=== PATIENT | female | born 1950 | race African-American/Black ===

== ENCOUNTER 2023-01-28 12:07 | Emergency (ER) | payer OTHER ==
[2023-01-28 12:26] VITALS: RESP 18; BMI 22.4
[2023-01-28 14:59] LABS: EOS % 3.4 % (0-4.5); HEMOGLOBIN 10.9 GM/dL (10.7-15.3); LYMPH % 40.1 % (8-40); MCH 29.1 pg (25.7-33.7); MCHC 35.1 g/dl (32.0-36.0); MEAN CELL VOLUME 82.8 fl (80-96); MEAN PLT VOLUME 7.9 fl (7.5-11.1); MONO % 8.4 % (3.8-10.2); NEUT % 47.1 % (42.8-82.8); PLATELET COUNT 257 10^3/uL (134-434); RBC 3.75 M/mm3 (3.60-5.2); RDW 14.1 % (11.6-15.6); WHITE BLOOD COUNT 5.3 K/mm3 (4.0-10.0)
[2023-01-28 15:23] LABS: ALBUMIN 4.1 g/dl (3.4-5.0); CALCIUM 9.9 mg/dL (8.5-10.1)
[2023-01-28 15:26] LABS: CREATININE 1.3 mg/dL (0.55-1.3)
[2023-01-28 15:28] LABS: BILIRUBIN,TOTAL 0.7 mg/dL (0.2-1); TOT PROT 7.6 g/dl (6.4-8.2)
[2023-01-28] MEDS ORDERED: SODIUM CHLORIDE 0.9% 500 ML INFUS.BAG IV ONE (15:57)
[2023-01-28 17:38] VITALS: BP 100/62; PULSE 88; TEMP 98
== END 2023-01-28 17:38 | disposition home or self-care (01) ==
LOC: JER 12:07
DX: K11.7 Disturbances of salivary secretion (principal); E78.5 Hyperlipidemia, unspecified; C64.9 Malignant neoplasm of unspecified kidney, except renal pelvis
CPT/HCPCS: 36415; 70450-TC; 70487-TC; 70491-TC; 80053; 85025; 99285-25; Q9967